=== PATIENT | male | born 1965 | race Caucasian/White ===

== ENCOUNTER 2018-10-06 19:12 | Emergency (ER) | payer OTHER, SELFPAY ==
--- NOTE | 2018-10-06 20:12 | ER ---
Nurse's Notes [facility] Name: Simon Munguia Age: 53 yrs Sex: Male : 1965 Arrival Date: 10/06/2018 Time: 19:16 Bed 12 Private MD: Diagnosis: Encounter for screening, unspecified Presentation: 10/06 19:32 Presenting complaint: Patient states: Low back pain radiating down left leg; Began 2 lp1 days ago, but aggravated by playing golf yesterday and sitting in 3 hour movie today; States similar symptoms previously but pain more severe today. Transition of care: patient was not received from another setting of care. Onset of symptoms was October 06, 2018. Risk Assessment: Do you want to hurt yourself or someone else? Patient reports no desire to harm self or others. Initial Sepsis Screen: Does the patient meet any 2 criteria? No. Patient's initial sepsis screen is negative. Does the patient have a suspected source of infection? No. Patient's initial sepsis screen is negative. Care prior to arrival: None. 19:32 Method Of Arrival: Ambulatory lp1 19:32 Acuity: JAYESH 4 lp1 Historical: - Allergies: 19:34 No Known Allergies; lp1 - Home Meds: 19:34 Unable to obtain [Active]; lp1 - PMHx: 19:34 Hypertension; Hyperlipidemia; lp1 - PSHx: 19:34 None; lp1 - Immunization history:: Adult Immunizations up to date. - Social history:: Smoking status: Patient uses tobacco products, smokes one-half pack cigarettes per day. - Ebola Screening: : No symptoms or risks identified at this time. Screenin:45 Abuse screen: Denies threats or abuse. Denies injuries from another. Nutritional aj1 screening: No deficits noted. Tuberculosis screening: No symptoms or risk factors identified. Fall Risk None identified. Assessment: 19:45 General: Appears in no apparent distress. uncomfortable, Behavior is calm, cooperative, aj1 appropriate for age. Pain: Complains of pain in low back area Pain radiates to left leg. Neuro: Level of Consciousness is awake, alert, obeys commands. Cardiovascular: Patient's skin is warm and dry. Respiratory: Airway is patent Respiratory effort is even, unlabored, Respiratory pattern is regular, symmetrical. GI: No signs and/or symptoms were reported involving the gastrointestinal system. : No signs and/or symptoms were reported regarding the genitourinary system. EENT: No signs and/or symptoms were reported regarding the EENT system. Derm: No signs and/or symptoms reported regarding the dermatologic system. Skin is pink, warm \T\ dry. normal. Musculoskeletal: No signs and/or symptoms reported regarding the musculoskeletal system. Circulation, motion, and sensation intact. Vital Signs: 19:33 BP 131 / 86; Pulse 106; Resp 18; Temp 97(TE); Pulse Ox 97% on R/A; Weight 104.33 kg; lp1 Height 6 ft. 0 in. (182.88 cm); Pain 6/10; 19:33 Body Mass Index 31.19 (104.33 kg, 182.88 cm) lp1 ED Course: 19:16 Patient arrived in ED. es 19:33 Triage completed. lp1 19:33 Arm band placed on left wrist. lp1 19:36 Jatinder Thakcer MD is Attending Physician. 19:38 Regina Vanegas RN is Primary Nurse. aj1 19:45 Patient has correct armband on for positive identification. aj1 19:45 No provider procedures requiring assistance completed. Patient did not have IV access aj1 during this emergency room visit. Administered Medications: No medications were administered Outcome: 20:12 Discharge ordered by . 20:15 Medical screen evaluation completed per provider. Patient declined treatment. aj1 20:15 Condition: good 20:15 Following a medical screening exam, the patient was provided information regarding alternative care sites and resources available per registration personnel. 20:15 Patient left the ED. aj1 Signatures: Regina Vanegas RN RN 1 Leah Dubon Laura, RN RN 1 Jatinder Thacker MD MD
--- NOTE | 2018-10-06 20:12 | EDPHYS ---
Physician Documentation [facility] Name: Simon Munguia Age: 53 yrs Sex: Male : 1965 Arrival Date: 10/06/2018 Time: 19:16 Bed 12 Private MD: ED Physician Jatinder Thacker HPI: 10/06 20:07 This 53 yrs old Male presents to ER via Ambulatory with complaints of Low gs Back Pain. 20:07 The patient presents with pain that is acute. The symptoms are located in the low back. gs The pain radiates to the lateral aspect of left thigh. The problem was sustained when bending over, from twisting. Onset: The symptoms/episode began/occurred 2 day(s) ago, and became persistent. Modifying factors: the patient symptoms are aggravated by bending. Associated signs and symptoms: Pertinent negatives: constipation, dysuria, fever, incontinence, numbness, urinary retention, weakness. Severity of symptoms: At their worst the symptoms were moderate, in the emergency department the symptoms are unchanged. The patient has experienced similar episodes in the past, multiple times. Historical: - Allergies: 19:34 No Known Allergies; lp1 - Home Meds: 19:34 Unable to obtain [Active]; lp1 - PMHx: 19:34 Hypertension; Hyperlipidemia; lp1 - PSHx: 19:34 None; lp1 - Immunization history:: Adult Immunizations up to date. - Social history:: Smoking status: Patient uses tobacco products, smokes one-half pack cigarettes per day. - Ebola Screening: : No symptoms or risks identified at this time. ROS: 20:07 All other systems are negative. gs Exam: 20:07 Head/Face: Normocephalic, atraumatic. Eyes: Pupils equal round and reactive to light, gs extra-ocular motions intact. Lids and lashes normal. Conjunctiva and sclera are non-icteric and not injected. Cornea within normal limits. Periorbital areas with no swelling, redness, or edema. ENT: Nares patent. No nasal discharge, no septal abnormalities noted. Tympanic membranes are normal and external auditory canals are clear. Oropharynx with no redness, swelling, or masses, exudates, or evidence of obstruction, uvula midline. Mucous membranes moist. Neck: Trachea midline, no thyromegaly or masses palpated, and no cervical lymphadenopathy. Supple, full range of motion without nuchal rigidity, or vertebral point tenderness. No Meningismus. Chest/axilla: Normal chest wall appearance and motion. Nontender with no deformity. No lesions are appreciated. Cardiovascular: Regular rate and rhythm with a normal S1 and S2. No gallops, murmurs, or rubs. Normal PMI, no JVD. No pulse deficits. Respiratory: Lungs have equal breath sounds bilaterally, clear to auscultation and percussion. No rales, rhonchi or wheezes noted. No increased work of breathing, no retractions or nasal flaring. Abdomen/GI: Soft, non-tender, with normal bowel sounds. No distension or tympany. No guarding or rebound. No evidence of tenderness throughout. Skin: Warm, dry with normal turgor. Normal color with no rashes, no lesions, and no evidence of cellulitis. MS/ Extremity: Pulses equal, no cyanosis. Neurovascular intact. Full, normal range of motion. Neuro: Awake and alert, GCS 15, oriented to person, place, time, and situation. Cranial nerves II-XII grossly intact. Motor strength 5/5 in all extremities. Sensory grossly intact. Cerebellar exam normal. Normal gait. 20:07 Constitutional: The patient appears alert, awake. 20:07 Back: pain, that is mild, of the left low back. Vital Signs: 19:33 BP 131 / 86; Pulse 106; Resp 18; Temp 97(TE); Pulse Ox 97% on R/A; Weight 104.33 kg; lp1 Height 6 ft. 0 in. (182.88 cm); Pain 6/10; 19:33 Body Mass Index 31.19 (104.33 kg, 182.88 cm) lp1 MDM: 19:46 Patient medically screened. gs 20:07 Differential diagnosis: strain, Herniated disc. Data reviewed: vital signs, nurses gs notes. Administered Medications: No medications were administered Disposition: 10/06/18 20:12 Discharged to Home. Impression: Encounter for screening, unspecified. - Condition is Stable. - Medication Reconciliation Form, Thank You Letter, Antibiotic Education, Prescription Opioid Use form. - Follow up: Private Physician; When: 2 - 3 days; Reason: Re-evaluation by your physician. Signatures: Regina Vanegas RN RN aj1 Isadora Colby RN RN lp1 Jatinder Thacker MD MD gs Corrections: (The following items were deleted from the chart) 20:15 20:12 10/06/2018 20:12 Discharged to Home. Impression: Encounter for screening, aj1 unspecified. Condition is Stable. Forms are Medication Reconciliation Form, Thank You Letter, Antibiotic Education, Prescription Opioid Use. Follow up: Private Physician; When: 2 - 3 days; Reason: Re-evaluation by your physician. gs
== END 2018-10-06 20:15 | disposition home or self-care (01) ==
LOC: ER 19:12
DX: Z13.9 Encounter for screening, unspecified (principal); I10 Essential (primary) hypertension; F17.210 Nicotine dependence, cigarettes, uncomplicated

== ENCOUNTER 2024-03-23 09:35 | Observation (INO) | payer MEDICARE, OTHER ==
--- OUTSIDE RECORDS SUMMARY | 2024-03-23 09:39 | XMS REPORT | Continuity of Care Document ---
Author Name Unknown Address [address] [facility] [address] [place], [place] [id number] [place] [address] thconnect Address [address] [facility] [address] [place] [address] Care Team Providers Care Surgical Product Sales Consultant Name Role Phone Rad Sen Attending Clinician [facility], No Primary or Family Admitting Clinic jose rafael Unavailable Payers Payer Name Policy Type Policy Number Effective Date Expirati on Date Source Encounters Start Date/Time End Date/Time Encounter Type Admission Type Attending Clinicians Care Facility Care Department Encounter ID Source 2019-07-29 09:49:00 2019-07-29 09:49:00 Outpatient Rad [facility] RADI [id number] [address] [facility] Results Test Description Test Time Test Comments Results Result Co mments Source - XR CHEST 2 V 2019-07-29 10:19:00 FAX: Rad [place] [phone] [place]: St: REG Name: YRIS DON [facility] : 1965 Age/S: 54/M [address] [place] [address] Blvd Unit #: [id number] Loc: [place] [address] Phys: Rad Sen MD Acct: [id number] Dis Date: Status: REG CLI PHONE #: [phone] Exam Date: 07/29/2019 1011 FAX #: [phone] Reason: Z00.00, ENCOUNTER FOR WELLNESS EXAMINATION. EXAMS: CPT CODE: [id number] XR CHEST 2 V 01979 CLINICAL HISTORY: Z00.00, ENCOUNTER FOR WELLNESS EXAMINATION. COMPARISON: NONE PA and lateral films of the chest demonstrate that heart size is normal. Lung white are clear. No evidence of pneumonia or congestive failure is seen. Regional skeletal structures demonstrate no acute abnormality. IMPRESSION: No evidence of pneumonia or congestive failure is seen. at 1019 Reported and signed by: Silvestre Alvarez M.D. CC: Rad Sen Technologist: SCARLET Bryant) Trnscrd Date/Time/By: 07/29/2019 (1083) : By: Bal Orig Print D/T: S: 07/29/2019 (6945) PAGE 1 Signed Report
[2024-03-23 10:12] LABS: Absolute Basophils 0.1 K/uL (0-0.5); Absolute Eosinophils 0.5 K/uL (0-0.5); Absolute Lymphocytes (CBC) 1.5 K/uL (0.7-4.9); Absolute Monocytes 0.9 K/uL (0.1-1.3); Absolute Neutrophil 7.1 K/uL (1.8-8.0); Basophils % 0.9 % (0-1.3); Eosinophils % 4.8 % (0-4.4); Hematocrit 41.6 % (39.6-49.0); Hemoglobin 13.9 g/dL (13.6-17.9); Lymphocytes % 14.7 % (15.3-44.8); MCH 29.9 pg (27.0-35.0); MCHC 33.4 g/dL (32.0-36.0); MCV 89.5 fL (80-100); MPV 8.1 fL (7.6-11.3); Monocytes % 9.1 % (3.3-12.3); Neutrophils % 70.5 % (41.7-73.7); Platelets 263 thou/uL (152-406); RBC Red Blood Cell Count 4.65 M/uL (4.33-5.43); Red Cell Distribution Width 14.5 % (12.1-15.2)
--- NOTE | 2024-03-23 10:18 | RAD REPORT ---
EXAMINATION: ONE VIEW CHEST XR CLINICAL INDICATION: DYSPNEA TECHNIQUE: Frontal chest projection is submitted. Examination is limited by patient positioning and t echnique. COMPARISON: No prior exam. FINDINGS: Mild interstitial pulmonary edema is possible. The heart is upper limit of normal in size. No displac ed fractures identified. IMPRESSION: Mild CHF is suspected.
[2024-03-23 10:29] LABS: Anion Gap 7.2 mEq/L (5.0-15.0); Magnesium 2.2 mg/dL (1.6-2.4); Potassium 4.2 mEq/L (3.5-5.1); Troponin High Sensitivity 5.9 pg/mL (<58.9)
--- NOTE | 2024-03-23 10:34 | RAD REPORT ---
EXAMINATION: US BILATERAL LOWER EXTREMITY VENOUS DOPPLER CLINICAL INDICATION: Pain;Swelling TECHNIQUE: Complete bilateral duplex sonography of the LEFT lower extremity veins was performed. The examination included compression for vein patency, color Doppler imaging and flow augmentation in response to distal compression of the distal external iliac, common femoral, femoral, popliteal, tibi al, and great and small saphenous veins. COMPARISON: No prior exam. FINDINGS: Duplex sonography testing of the veins of the LEFT lower extremity was performed. There is evidence o f thrombus involving the distal left femoral vein, popliteal vein and extending into the posterior tibial vein. IMPRESSION: Positive for left lower extremity DVT.
[2024-03-23] MEDS ORDERED: APIXABAN 5 MG TABLET ONE (10:45)
--- NOTE | 2024-03-23 11:06 | RAD REPORT ---
EXAMINATION: CTA CHEST PE CLINICAL INDICATION: DYSPNEA TECHNIQUE: This examination was performed according to an angiographic protocol with 3D post-processi ng. This involves 3D reconstructions, MIPs, volume rendered images and/or shaded surface rendering. One or more of the following dose reduction techniques were used: Automated exposure control, adjustm ent of the mA and/or kV according to patient size, and/or iterative reconstruction. Unless otherwise specified, incidental findings do not require dedicated imaging follow-up. COMPARISON: No prior exam. FINDINGS: PULMONARY ARTERIES: Pulmonary embolism is seen involving the segmental branches on the right. Pulmona ry embolism also present in the left lower lobe branches on the periphery involving the subsegmental branches. Mild RV strain pattern noted. THORACIC AORTA: Normal caliber and configuration. LUNGS: No evidence of airspace or interstitial process. No nodules. PLEURA: No pleural effusion. No pneumothorax. MEDIASTINUM AND LYMPH NODES: No mediastinal mass or fluid collection. Normal size mediastinal, hilar, and axillary lymph nodes. OSSEOUS STRUCTURES AND CHEST WALL: Intact. UPPER ABDOMEN: Vague areas of diminished density partially visualized liver. IMPRESSION: Positive for pulmonary thromboembolism bilaterally, slightly greater on the right as detailed. Mild RV strain pattern is seen. Vague areas of diminished density are seen in the liver parenchyma. Liver ultrasound commended for fu rther evaluation as these may represent liver masses.
--- NOTE | 2024-03-23 11:27 | EDPHYS ---
Physician Documentation [facility] Name: Simon Munguia Age: 59 yrs Sex: Male : 1965 Arrival Date: 03/23/2024 Time: 09:35 Bed 5 Private MD: ED Physician Abel Reyna HPI: 03/23 09:43 This 59 yrs old Male presents to ER via Unassigned with complaints of Leg Swelling - kb left. 09:43 Pt is a 59 year old male who presents for left lower leg pain and swelling that started kb one week ago. Denies chest pain. States he has had exertional dyspnea. . Historical: - Allergies: 10:04 No Known Allergies; hb - PMHx: 10:04 Hyperlipidemia; Hypertension; hb - PSHx: 10:04 None; hb - Immunization history:: Adult Immunizations up to date. - Infectious Disease History:: Denies. - Social history:: Smoking status: Patient/guardian denies using tobacco, the patient reports quitting approximately 5 years ago. ROS: 09:43 Constitutional: As per HPI kb Exam: 09:43 Constitutional: This is a well developed, well nourished patient who is awake, alert, kb and in no acute distress. Head/Face: Normocephalic, atraumatic. ENT: Moist Mucous membranes Cardiovascular: Regular rate Respiratory: Respirations even and unlabored. No increased work of breathing. Talking in full sentences Abdomen/GI: Soft, non-tender. No distention Skin: Warm, dry with normal turgor. Normal color. Neuro: Awake and alert, GCS 15, oriented to person, place, time, and situation. Moves all extremities. Normal gait. 09:43 Musculoskeletal/extremity: Extremities: grossly normal except: noted in the left lee: pain, swelling, tenderness, ROM: intact in all extremities, Circulation is intact in all extremities. Sensation intact. 10:07 ECG was reviewed by the Attending Physician. kb Vital Signs: 09:53 BP 146 / 98; Pulse 106; Resp 16; Temp 99.5(O); Pulse Ox 98% on R/A; Weight 106.59 kg; hb Height 6 ft. 0 in. ; Pain 5/10; 11:12 BP 140 / 97; Pulse 92; Resp 18 S; Pulse Ox 98% on R/A; aa5 11:45 BP 118 / 70; Pulse 92; Resp 16 S; Temp 97.8(TE); Pulse Ox 98% on R/A; aa5 09:53 Body Mass Index 31.87 (106.59 kg, 182.88 cm) hb 09:53 Pain Scale: Adult hb MDM: 09:45 Data reviewed: vital signs, nurses notes. kb 10:15 Patient medically screened. kb 11:24 Differential diagnosis: dvt, pe. SC =, CHF. Consideration of Admission/Observation kb Patient was admitted/placed on observation. Escalation of care including admission/observation considered. Management of patient was discussed with the following: Hospitalist: Hospitalist team, accepted for admission under Dr Reyna. Counseling: I had a detailed discussion with the patient and/or guardian regarding the historical points, exam findings, and any diagnostic results supporting the discharge/admit diagnosis, lab results, radiology results, the need for further work-up and treatment in the hospital. 03/23 09:45 Order name: Basic Metabolic Panel; Complete Time: 10:30 kb 03/23 09:45 Order name: CBC with Diff; Complete Time: 10:16 kb 03/23 09:45 Order name: Magnesium; Complete Time: 10:30 kb 03/23 09:45 Order name: NT PRO-BNP; Complete Time: 10:30 kb 03/23 09:45 Order name: Troponin HS; Complete Time: 10:30 kb 03/23 09:42 Order name: US Extremity Venous Unilateral Ltd; Complete Time: 10:41 kb 03/23 09:45 Order name: XRAY Chest (1 view); Complete Time: 10:21 kb 03/23 09:45 Order name: CT Chest For PE Angio; Complete Time: 11:06 kb 03/23 11:50 Order name: Liver Only; Complete Time: 12:51 EDMS 03/23 11:53 Order name: Echo with Doppler EDMS 03/23 09:45 Order name: Cardiac monitoring; Complete Time: 10:07 kb 03/23 09:45 Order name: EKG - Nurse/Tech; Complete Time: 10:07 kb 03/23 09:45 Order name: IV Saline Lock; Complete Time: 10:07 kb 03/23 09:45 Order name: Labs collected and sent; Complete Time: 10:07 kb 03/23 09:45 Order name: O2 Per Protocol; Complete Time: 10:07 kb 03/23 09:45 Order name: O2 Sat Monitoring; Complete Time: 10: kb EC: Rate is 103 beats/min. Rhythm is regular. QRS [place] is Normal. LA interval is normal at kb 160 msec. QRS interval is normal at 84 msec. QT interval is normal at 421 msec. Administered Medications: 10:46 Drug: Eliquis PO 10 mg PO once Route: PO; bp 12:50 Follow up: Response: No adverse reaction aa5 Disposition Summary: 03/23/24 11:26 Hospitalization Ordered Notes: Hospitalization Status: Observation kb Provider: Edvin Reyna Location: Telemetry/MedSurg (observation) kb Condition: Stable kb Problem: new kb Symptoms: are unchanged kb Bed/Room Type: Standard Room Assignment: 213(03/23/24 11:58) bd Diagnosis - Acute embolism and thrombosis of deep veins of lower extremity kb - Pulmonary embolism without acute cor pulmonale kb Forms: - Medication Reconciliation Form kb - SBAR form kb - Leadership Thank You Letter kb Signatures: Dispatcher [employer] EDMS Kathy Self, PHOTOGRAPHY INTERN-C PHOTOGRAPHY INTERN-[place] Cheung Heather, RN RN hb Nghia Allan, RN RN bp Katy Valdovinos RN aa5 Corrections: (The following items were deleted from the chart) 09:43 09:43 Extremity Venous Uni Ltd+US.RAD.BRZ ordered. EDMS EDMS 09:46 09:46 Chest Single View+RAD.RAD.BRZ ordered. EDMS EDMS 09:46 09:46 Chest For PE Angio+CT.RAD.BRZ ordered. EDMS EDMS 10:05 10:04 PSHx: High Cholesterol; hb hb 10:05 10:04 PSHx: Hypertension; hb hb 11:58 11:26 kb bd
--- NOTE | 2024-03-23 11:27 | ER ---
Nurse's Notes [facility] Name: Simon Munguia Age: 59 yrs Sex: Male : 1965 Arrival Date: 03/23/2024 Time: 09:35 Bed 5 Private MD: Diagnosis: Acute embolism and thrombosis of deep veins of lower extremity;Pulmonary embolism without acute cor pulmonale Presentation: 03/23 09:53 Chief complaint: Left leg pain, swelling, and redness x 1 week. Coronavirus screen: At this time, the client does not indicate any symptoms associated with coronavirus-19. Ebola Screen: No symptoms or risks identified at this time. Initial Sepsis Screen: Does the patient meet any 2 criteria? No. Patient's initial sepsis screen is negative. Does the patient have a suspected source of infection? No. Patient's initial sepsis screen is negative. Risk Assessment: Do you want to hurt yourself or someone else? Patient reports no desire to harm self or others. Onset of symptoms was March 16, 2024. 09:53 Method Of Arrival: Ambulatory 09:53 Acuity: JAYESH 3 hb Historical: - Allergies: 10:04 No Known Allergies; hb - PMHx: 10:04 Hyperlipidemia; Hypertension; hb - PSHx: 10:04 None; hb - Immunization history:: Adult Immunizations up to date. - Infectious Disease History:: Denies. - Social history:: Smoking status: Patient/guardian denies using tobacco, the patient reports quitting approximately 5 years ago. Screenin:00 [facility] ED Fall Risk Assessment (Adult) History of falling in the last 3 months, aa5 including since admission No falls in past 3 months (0 pts) Confusion or Disorientation No (0 pts) Intoxicated or Sedated No (0 pts) Impaired Gait No (0 pts) Mobility Assist Device Used No (0 pt) Altered Elimination No (0 pt) Score/Fall Risk Level 0 - 2 = Low Risk Oriented to surroundings, Maintained a safe environment, Educated pt \T\ family on fall prevention, incl call for assistance when getting out of bed. Abuse screen: Denies threats or abuse. Nutritional screening: No deficits noted. Tuberculosis screening: No symptoms or risk factors identified. Assessment: 10:00 General: Appears comfortable, Behavior is calm, cooperative. Pain: Complains of pain in aa5 left leg Pain currently is 1 out of 10 on a pain scale. Quality of pain is described as aching, Pain began 2-3 days ago. Is continuous. Neuro: Level of Consciousness is awake, alert, obeys commands, Oriented to person, place, time, situation. Cardiovascular: Heart tones S1 S2 present Rhythm is sinus tachycardia. Respiratory: Airway is patent Respiratory effort is even, unlabored, Respiratory pattern is regular, symmetrical. GI: No signs and/or symptoms were reported involving the gastrointestinal system. : No signs and/or symptoms were reported regarding the genitourinary system. EENT: No signs and/or symptoms were reported regarding the EENT system. Derm: Skin is pink, warm \T\ dry. Musculoskeletal: Reports pain and swelling to left leg. 10:35 Reassessment: Patient is alert, oriented x 3, equal unlabored respirations, skin aa5 warm/dry/pink. Pt back from US. 10:38 Reassessment: Pt to CT via stretcher . aa5 11:45 Reassessment: Patient is alert, oriented x 3, equal unlabored respirations, skin aa5 warm/dry/pink. 12:22 Reassessment: Pt currently at radiology . aa5 12:23 Reassessment: Patient is alert, oriented x 3, equal unlabored respirations, skin aa5 warm/dry/pink. Pt back from radiology . Vital Signs: 09:53 BP 146 / 98; Pulse 106; Resp 16; Temp 99.5(O); Pulse Ox 98% on R/A; Weight 106.59 kg; hb Height 6 ft. 0 in. ; Pain 5/10; 11:12 BP 140 / 97; Pulse 92; Resp 18 S; Pulse Ox 98% on R/A; aa5 11:45 BP 118 / 70; Pulse 92; Resp 16 S; Temp 97.8(TE); Pulse Ox 98% on R/A; aa5 09:53 Body Mass Index 31.87 (106.59 kg, 182.88 cm) hb 09:53 Pain Scale: Adult hb ED Course: 09:37 Patient arrived in ED. im 09:38 Kathy Self FNP-C [facility]. kb 09:38 Abel Reyna MD is Attending Physician. kb 09:52 Katy Valdovinos, NICA is Primary Nurse. aa5 10:00 Arm band placed on. aa5 10:00 Patient has correct armband on for positive identification. Placed in gown. Bed in low aa5 position. Call light in reach. Side rails up X 1. Client placed on continuous cardiac and pulse oximetry monitoring. NIBP monitoring applied. licensed practical nurse clinic nurse on. Pulse ox on. NIBP on. 10:01 EKG done, by ED staff, reviewed by Kathy LEONARDO. aa5 10:04 Triage completed. hb 10:05 Initial lab(s) drawn, by vt, sent to lab. Inserted saline lock: 20 gauge in right aa5 antecubital area, using aseptic technique. Blood collected. Flushed with 10 mL NS. 10:11 No provider procedures requiring assistance completed. aa5 10:15 XRAY Chest (1 view) In Process Unspecified. EDMS 10:27 US Extremity Venous Unilateral Ltd In Process Unspecified. EDMS 10:42 CT Chest For PE Angio In Process Unspecified. EDMS 11:26 Edvin Reyna MD is Hospitalizing Provider. kb 12:50 Patient admitted, IV remains in place. aa5 Administered Medications: 10:46 Drug: Eliquis PO 10 mg PO once Route: PO; bp 12:50 Follow up: Response: No adverse reaction aa5 Medication: 10:09 VIS not applicable for this client. aa5 Outcome: 11:26 Decision to Hospitalize by Provider. kb 12:50 Admitted to Med/surg accompanied by tech, via stretcher, with chart, aa5 12:50 Condition: stable 12:50 Instructed on the need for admit, Demonstrated understanding of instructions, 13:10 Patient left the ED. aa5 Signatures: Dispatcher [employer] EDMS Kathy Self FNP-C FNP-Ckb Calderon, Audri RN RN aa5 Riya Herzog RN RN Nghia Devine, RN RN bp Argenis Valerio Corrections: (The following items were deleted from the chart) 10:05 10:04 PSHx: High Cholesterol; hb hb 10:05 10:04 PSHx: Hypertension; hb hb 10:09 10:05 Arm band placed on hb aa5 13:29 13:29 Patient left the ED. aa5 aa5
--- NOTE | 2024-03-23 12:40 | RAD REPORT ---
EXAMINATION: Ultrasound of the liver CLINICAL HISTORY: [facility] MA[facility] ABN CT [facility] ABN CT COMPARISON: Chest CT dated 03/23/2024 FINDINGS: Liver: Visualized portions of the liver demonstrate prominent fatty liver infiltration. There are num erous hypoechoic lesions seen throughout the parenchyma suspicious for multiple liver masses. Another possibility would be areas of fatty sparing.. MRI liver protocol with contrast would be recom mended for follow-up assessment. Gallbladder: Nonvisualized Bile ducts: No intrahepatic or extrahepatic biliary dilatation. Common bile duct measures 2 mm. Fluid: No ascites. Spleen: Mildly prominent measuring 13 mm IMPRESSION: Prominent diffuse fatty liver pattern is seen. Within the liver parenchyma there are multiple geograp hic areas of masslike hypoechoic tissue. Differential would include multiple liver masses versus areas of fatty sparing. Recommend MRI liver protocol contrast for further evaluation of these findin gs.
[2024-03-23] MEDS ORDERED: ONDANSETRON 4 MG/2 ML VIAL IV PRN (13:25)
--- NOTE | 2024-03-23 14:45 | P.HP ---
Certification for Inpatient Patient admitted to: Observation With expected LOS: <2 Midnights Patient will require the following post-hospital care: None Practitioner: I am a practitioner with admitting privileges, knowledge of patient current condition, hospital course, and medical plan of care. Services: Services provided to patient in accordance with Admission requirements found in Title 42 Section 412.3 of the Code of Federal Regulations Patient History Date of Service: 03/23/24 Reason for admission: DVT, bilateral PE History of Present Illness: 59-year-old male with history of hypertension, hyperlipidemia, gout presents to the emergency department chief complaint of left lower extremity edema, dyspnea on exertion. He reports that he had been having symptoms for about 1 week now. He was evaluated in the emergency department ultrasound of the left lower extremity showed left lower extremity DVT involving the distal left femoral vein, popliteal vein and extending into the posterior tibial vein. CTA of the chest was also performed which showed PE involving the segmental branches on the right, left lower lobe branches on the periphery involving the subsegmental branches with mild RV strain pattern noted. Troponin and BNP within normal ranges, heart rate around 105 although patient reports his baseline heart rate is around 100 his entire life. He is normotensive and oxygen saturation within normal limits. CT of the chest also mentions some abnormalities in the liver and recommended liver ultrasound which has been ordered. Allergies No Known Allergies Allergy (Unverified 03/23/24 13:25) Home Medications: Dextroamphetamine/Amphetamine [Adderall Xr 20 mg Capsule] 20 mg PO BID 03/23/24 Olmesartan Medoxomil 1 tab PO BID 03/23/24 Rosuvastatin [Crestor] 10 mg PO DAILY 03/23/24 Zolpidem Tartrate 10 mg PO BEDTIME 03/23/24 - Past Medical/Surgical History Diabetic: No -: HTN -: HLD -: Insomnia -: ADD -: Pancreatitis Psychosocial/ Personal History: Works at a car [employer] - Family History Mother -: Hypertension, Cancer Notes: breast CA - survivor Father -: Heart disease, Stroke, Cancer, Kidney disease Notes: kidney CA, throat CA. watchman procedure - Social History Smoking Status: Former smoker Alcohol use: Yes CD- Drugs: No Caffeine use: Yes Place of Residence: Home Review of Systems 10-point ROS is otherwise unremarkable Respiratory: SOB with Excertion Musculoskeletal: Leg Pain (And swelling left lower extremity) Physical Examination - Vital Signs Temperature: 97.8 F Blood Pressure: 118/70 Pulse: 92 Respirations: 16 Pulse Ox (%): 99 - Physical Exam General: Alert, In no apparent distress, Oriented x3 HEENT: Atraumatic, PERRLA, EOMI Neck: Supple, 2+ carotid pulse no bruit, No LAD Respiratory: Clear to auscultation bilaterally, Normal air movement Cardiovascular: Regular rate/rhythm, Normal S1 S2 Gastrointestinal: Normal bowel sounds, No tenderness Musculoskeletal: No tenderness Integumentary: No rashes Neurological: Normal gait, Normal speech, Normal strength at 5/5 x4 extr, Normal tone - Studies Laboratory Data (last 24 hrs) 03/23/24 03/23/24 10:05 10:05 WBC 10.10 Hgb 13.9 Hct 41.6 Plt Count 263 Sodium 131 L Potassium 4.2 BUN 13 Creatinine 1.02 Glucose 171 H Magnesium 2.2 Assessment and Plan - Plan Assessment: Left lower extremity DVT, bilateral PE Abnormal findings of liver on CT Hypertension Hyperlipidemia Plan: Left lower extremity DVT, bilateral PE Troponin, BNP within normal limits CT shows mild right heart strain Echocardiogram ordered, pending PESI class II- low risk Continue anticoagulation unclear etiology of DVT/PE Denies tobacco use, hormone therapies including testosterone, recent travel, family history of blood clots or personal history of blood clots Does report prolonged periods of 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
[2024-03-23 16:01] LABS: Albumin 2.9 g/dL (3.4-5.0); Albumin/Globulin Ratio 0.6 (1.1-1.8); Bilirubin Direct 0.3 mg/dL (0-0.2); Bilirubin Indirect, Calculated 0.4 mg/dL (0.2-0.8); Bilirubin Total 0.7 mg/dL (0.2-1.0); Globulin 4.6 g/dL (2.3-3.5); Protein, Total 7.5 g/dL (6.4-8.2)
--- NOTE | 2024-03-23 16:42 | P.CNS ---
Date of Consult: 03/23/24 Reason for Consult: DVT and PE Chief Complaint: DVT, bilateral PE History of Present Illness: Pt is 59 yrs of age admitted with DVT and PE symtomatic for 2 wks with swelling and pain of the left leg and dyspnea on exertion Allergies No Known Allergies Allergy (Unverified 03/23/24 13:25) Home Medications: Dextroamphetamine/Amphetamine [Adderall Xr 20 mg Capsule] 20 mg PO BID 03/23/24 Olmesartan Medoxomil 1 tab PO BID 03/23/24 Rosuvastatin [Crestor] 10 mg PO DAILY 03/23/24 Zolpidem Tartrate 10 mg PO BEDTIME 03/23/24 - Past Medical/Surgical History Diabetic: No -: HTN -: HLD -: Insomnia -: ADD -: Pancreatitis Psychosocial/ Personal History: Works at a [employer] - Family History Mother Medical History: Hypertension, Cancer Notes: breast CA - survivor Father Medical History: Heart disease, Stroke, Cancer, Kidney disease Notes: kidney CA, throat CA. watchman procedure - Social History Smoking Status: Current every day smoker Alcohol use: Yes CD- Drugs: No Caffeine use: Yes Place of Residence: Home Review of Systems 10-point ROS is otherwise unremarkable General: Weakness Respiratory: Shortness of Breath Physical Examination Temp Pulse Resp BP Pulse Ox 98.4 F 95 H 16 134/74 97 03/23/24 16:00 03/23/24 16:00 03/23/24 16:00 03/23/24 16:00 03/23/24 16:00 General: Alert, Oriented x3 Respiratory: Clear to auscultation bilaterally Cardiovascular: Normal S1 S2, Edema (Edema of the left leg) Gastrointestinal: Normal bowel sounds, Soft and benign Laboratory Data (last 24 hrs) 03/23/24 03/23/24 03/23/24 10:05 10:05 10:05 WBC 10.10 Hgb 13.9 Hct 41.6 Plt Count 263 Sodium 131 L Potassium 4.2 BUN 13 Creatinine 1.02 Glucose 171 H Magnesium 2.2 Total Bilirubin 0.7 AST 71 H ALT 96 H Alkaline Phosphatase 285 H - Problems (1) Pulmonary emboli Current Visit: Yes Status: Acute Plan: Age 59 admitted with Left leg DVT and PE.Agree with Eliquis labs reviewed will 3-6 months possible indef Eliquis. Will check D Dimer in 3 months (2) Cirrhosis of liver Current Visit: Yes Status: Acute Plan: t funes a fatty liver Most halimaley cirhosis of the liver from excess drinking Qualifiers: Hepatic cirrhosis type: alcoholic cirrhosis
[2024-03-23] MEDS: APIXABAN 5 MG TABLET PO SCH (20:30)
[2024-03-24 05:21] LABS: Absolute Basophils 0.1 K/uL (0-0.5); Absolute Eosinophils 0.5 K/uL (0-0.5); Absolute Lymphocytes (CBC) 1.4 K/uL (0.7-4.9); Absolute Monocytes 1.1 K/uL (0.1-1.3); Absolute Neutrophil 6.2 K/uL (1.8-8.0); Basophils % 1.1 % (0-1.3); Eosinophils % 5.4 % (0-4.4); Hematocrit 40.3 % (39.6-49.0); Hemoglobin 13.4 g/dL (13.6-17.9); Lymphocytes % 14.7 % (15.3-44.8); MCH 30.1 pg (27.0-35.0); MCHC 33.4 g/dL (32.0-36.0); MCV 90.3 fL (80-100); MPV 8.4 fL (7.6-11.3); Monocytes % 12.1 % (3.3-12.3); Neutrophils % 66.7 % (41.7-73.7); Platelets 233 thou/uL (152-406); RBC Red Blood Cell Count 4.46 M/uL (4.33-5.43); Red Cell Distribution Width 14.6 % (12.1-15.2)
[2024-03-24 05:22] LABS: PT Prothrombin Time 17.8 SECONDS (9.4-12.5); Protime INR 1.61
[2024-03-24 05:38] LABS: Albumin 2.7 g/dL (3.4-5.0); Albumin/Globulin Ratio 0.6 (1.1-1.8); Anion Gap 6.3 mEq/L (5.0-15.0); Bilirubin Total 0.5 mg/dL (0.2-1.0); Globulin 4.5 g/dL (2.3-3.5); Potassium 4.3 mEq/L (3.5-5.1); Protein, Total 7.2 g/dL (6.4-8.2)
[2024-03-24] MEDS: IBUPROFEN 400 MG TAB PO PRN (06:31)
--- NOTE | 2024-03-24 06:34 | ECHO ---
HEIGHT: 6 ft 0 in WEIGHT: 235 lb 0 oz DATE OF STUDY: 03/23/[address]: Pan Foy NP 2-DIMENSIONAL: YES M.MODE: YES DOPPLER: YES COLOR FLOW: YES TDS: PORTABLE: YES DEFINITY: BUBBLE STUDY: DIAGNOSIS: PULMONARY EMBOLISM, HEART STRAIN CARDIAC HISTORY: CATHERIZATION: NO SURGERY: NO PROSTHETIC VALVE: NO PACEMAKER: NO MEASUREMENTS (cm) DIASTOLIC (NORMALS) SYSTOLIC (NORMALS) IVSd 1.1 (0.6-1.2) LA Diam 2.6 (1.9-4.0) LVEF 55-60% LVIDd 3.1 (3.5-5.7) LVIDs 2.2 (2.0-3.5) %FS 30% LVPWd 1.2 (0.6-1.2) Ao Diam 2.5 (2.0-3.7) 2 DIMENSIONAL ASSESSMENT: RIGHT ATRIUM: NORMAL LEFT ATRIUM: NORMAL RIGHT VENTRICLE: NORMAL LEFT VENTRICLE: NORMAL TRICUSPID VALVE: NORMAL MITRAL VALVE: NORMAL PULMONIC VALVE: NORMAL AORTIC VALVE: NORMAL PERICARDIAL EFFUSION: NONE AORTIC ROOT: NORMAL LEFT VENTRICULAR WALL MOTION: NORMAL DOPPLER/COLOR FLOW: NORMAL COMMENTS: 1. NORMAL LEFT VENTRICULAR EJECTION FRACTION 55-60% WITH NORMAL WALL MOTION 2. NORMAL RIGHT VENTRICULAR SIZE AND FUNCTION (NO STRAIN BY ECHOCARDIOGRAM) 3. TRACE MITRAL REGURGITATION TECHNOLOGIST: HEVER OVIEDO
[2024-03-24 10:03] VITALS: O2SAT 98
[2024-03-24 13:23] VITALS: BMI 31.8
[2024-03-24 13:59] VITALS: BP 131/85; TEMP 97.5
--- NOTE | 2024-03-24 14:39 | P.DS ---
Admission Date: 03/23/24 Discharge Date: 03/24/24 Disposition: ROUTINE DISCHARGE Discharge Condition: FAIR Reason for Admission: DVT, bilateral PE Brief History of Present Illness: Diagnosis Left lower extremity DVT, bilateral PE Abnormal findings of liver on CT Hypertension Hyperlipidemia HPI 03/23/2024 Simon Munguia is a 59-year-old male with history of hypertension, hyperlipidemia, gout presents to the emergency department chief complaint of left lower extremity edema, dyspnea on exertion. He reports that he had been having symptoms for about 1 week now. He was evaluated in the emergency department ultrasound of the left lower extremity showed left lower extremity DVT involving the distal left femoral vein, popliteal vein and extending into the posterior tibial vein. CTA of the chest was also performed which showed PE involving the segmental branches on the right, left lower lobe branches on the periphery involving the subsegmental branches with mild RV strain pattern noted. Troponin and BNP within normal ranges, heart rate around 105 although patient reports his baseline heart rate is around 100 his entire life. He is normotensive and oxygen saturation within normal limits. CT of the chest also mentions some abnormalities in the liver and recommended liver ultrasound which has been ordered. Hospital Course: Simon Munguia is a pleasant 59 year old male with a past medical history significant for hypertension, hyperlipidemia, gout who was admitted to the [facility] on 03/23/24 for left lower extremity DVT and PE. Simon Munguia presented to the ED with chief complaint of left lower extremity edema and dyspnea on exertion for one week. During this admission, he has remained on RA, afebrile, with NSR. He is in no acute distress, he was started on Eliquis BID and will continue anticoagulant therapy outpatient with a follow- up visit with Dr. Kaba for continued monitoring. On 03/24/24, Simon was seen on morning rounds and deemed medically stable for discharge. Simon was discharged with instructions to schedule follow-up appointments with PCP and Dr. Kaba. Simon was provided prescriptions for E liquis. Physical Exam General: Alert, In no apparent distress, Oriented x3 HEENT: Atraumatic, PERRLA, EOMI Neck: Supple, 2+ carotid pulse no bruit, No LAD Respiratory: Clear to auscultation bilaterally, Normal air movement Cardiovascular: Regular rate/rhythm, Normal S1 S2 Gastrointestinal: Normal bowel sounds, No tenderness Musculoskeletal: No tenderness Integumentary: No rashes Neurological: Normal gait, Normal speech, Normal strength at 5/5 x4 extr, Normal tone Vital Signs/Physical Exam: Temp Pulse Resp BP Pulse Ox 97.5 F 86 16 131/85 96 03/24/24 12:00 03/24/24 12:00 03/24/24 12:00 03/24/24 12:00 03/24/24 12:00 Laboratory Data at Discharge: WBC 9.30 thou/uL (4.3-10.9) 03/24/24 04:41 Hgb 13.4 g/dL (13.6-17.9) L 03/24/24 04:41 Hct 40.3 % (39.6-49.0) 03/24/24 04:41 Plt Count 233 thou/uL (152-406) 03/24/24 04:41 PT 17.8 SECONDS (9.4-12.5) H 03/24/24 04:41 INR 1.61 03/24/24 04:41 Sodium 133 mEq/L (136-145) L 03/24/24 04:41 Potassium 4.3 mEq/L (3.5-5.1) 03/24/24 04:41 BUN 13 mg/dL (7-18) 03/24/24 04:41 Creatinine 1.04 mg/dL (0.70-1.30) 03/24/24 04:41 Glucose 100 mg/dL (74-106) 03/24/24 04:41 Magnesium 2.2 mg/dL (1.6-2.4) 03/23/24 10:05 Total Bilirubin 0.5 mg/dL (0.2-1.0) 03/24/24 04:41 AST 68 U/L (15-37) H 03/24/24 04:41 ALT 94 U/L (16-61) H 03/24/24 04:41 Alkaline Phosphatase 306 U/L (45-117) H 03/24/24 04:41 Home Medications: Dextroamphetamine/Amphetamine [Adderall Xr 20 mg Capsule] 20 mg PO BID 03/23/24 Olmesartan Medoxomil 1 tab PO BID 03/23/24 Rosuvastatin [Crestor*] 10 mg PO DAILY 03/23/24 Zolpidem Tartrate 10 mg PO BEDTIME 03/23/24 Apixaban [Eliquis] 5 mg PO BID #74 tab 03/24/24 New Medications: Apixaban [Eliquis] 5 mg PO BID #74 tab Diet: AHA Activity: Ad ragini Followup: David Kaba MD [ACTIVE - CAN ADMIT] - 1-2 Weeks OOT,OOT [Primary Care Provider] - 1-2 Weeks
== END 2024-03-24 13:43 | disposition home or self-care (01) ==
LOC: ER 09:35 → ERHOLD 11:47 → 2ND 12:36
PROVIDERS: ADMIT Hospitalist; ATTEND Internal Medicine
DX: I82.432 Acute embolism and thrombosis of left popliteal vein (principal); I82.412 Acute embolism and thrombosis of left femoral vein; I82.442 Acute embolism and thrombosis of left tibial vein; I26.99 Other pulmonary embolism without acute cor pulmonale; R93.2 Abnormal findings on diagnostic imaging of liver and biliary tract; K74.60 Unspecified cirrhosis of liver; I10 Essential (primary) hypertension; E78.5 Hyperlipidemia, unspecified
CPT/HCPCS: 36415; 71045; 71275; 76705; 80048; 80053; 80076; 83735; 83880; 84484; 85025; 85610; 93005; 93306; 93971; G0378; Q9967

== ENCOUNTER 2024-04-09 12:29 | Emergency (ER) | payer MEDICARE ==
--- OUTSIDE RECORDS SUMMARY | 2024-04-09 12:32 | XMS REPORT | Continuity of Care Document ---
Author Name Unknown Address [address] [facility] [address] [place], [place] [id number] [place] [address] thconnect Address [address] [facility] [address] [place] [address] Care Team Providers Care Invoice Coder Name Role Phone Rad Sen [facility]ending [facility], No Primary or Family Admitting Clinic jose rafael Unavailable Payers Payer Name Policy Type Policy Number Effective Date Expirati on Date Source Encounters Start Date/Time End Date/Time Encounter Type Admission Type Attending Clinicians Care Facility Care Department Encounter ID Source 2019-07-29 09:49:00 2019-07-29 09:49:00 Outpatient Rad Warner [facility] RADI [id number] [address] [facility] Results Test Description Test Time Test Comments Results Result Co mments Source - XR CHEST 2 V 2019-07-29 10:19:00 FAX: Rad Al[place] [phone] Dolph: St: REG Name: YRIS DON [facility] : 1965 Age/S: 54/M [address] [place] [address] Blvd Unit #: [id number] Loc: [place] [address] Phys: Rad Sen MD Acct: [id number] Dis Date: Status: REG CLI PHONE #: [phone] Exam Date: 07/29/2019 1011 FAX #: [phone] Reason: Z00.00, ENCOUNTER FOR WELLNESS EXAMINATION. EXAMS: CPT CODE: [id number] XR CHEST 2 V 89264 CLINICAL HISTORY: Z00.00, ENCOUNTER FOR WELLNESS EXAMINATION. [...] Sen Technologist: SCARLET Bryant) Trnscrd Date/Time/By: 07/29/2019 (2402) : By: Bal Orig Print D/T: S: 07/29/2019 ([id number]) PAGE 1 Signed Report
[2024-04-09] MEDS ORDERED: NA CHLORIDE 0.9% 1,000 ML ONE (13:21)
[2024-04-09 13:59] LABS: SARS-CoV-2 Antigen CONTROL BLUE LINE VIS/BG OK; SARS-CoV-2 Antigen Rapid Res Negative (Negative)
[2024-04-09 14:04] LABS: Albumin 2.5 g/dL (3.4-5.0); Albumin/Globulin Ratio 0.5 (1.1-1.8); Bilirubin Direct 3.8 mg/dL (0-0.2); Bilirubin Indirect, Calculated 1.2 mg/dL (0.2-0.8); Protein, Total 7.5 g/dL (6.4-8.2); Troponin High Sensitivity 5.7 pg/mL (<58.9)
--- NOTE | 2024-04-09 14:10 | RAD REPORT ---
Procedure: Chest Single View HISTORY: Shortness of breath COMPARISON: March 23, 2024 FINDINGS: The lungs appear clear of acute infiltrate. No significant pleural effusion noted. The heart is normal size. IMPRESSION: No acute abnormality is displayed.
--- NOTE | 2024-04-09 14:10 | RAD REPORT ---
EXAMINATION: CTA CHEST PE CLINICAL INDICATION: Shortness of breath TECHNIQUE: 100 cc 370 Isovue administered intravenously. This examination was performed according to an angiographic protocol with 3D post-processing. This involves 3D reconstructions, MIPs, volume rendered images and/or shaded surface rendering. One or more of the following dose reduction techniqu es were used: Automated exposure control, adjustment of the mA and/or kV according to patient size, and/or iterative reconstruction. Unless otherwise specified, incidental findings do not require dedic ated imaging follow-up. LI1111. COMPARISON: March 23, 2024. FINDINGS: Left pulmonary emboli have mostly resolved. The thrombus within the right lobar and segmental branches has diminished. No thrombus within main pulmonary/right or left and main pulmonary artery . An aortic aneurysm not noted. No pleural effusion. No pericardial effusion. Lungs are clear. Mild stranding adjacent to the pancreatic tail may indicate mild pancreatitis.. Multiple hepatic masses are present. IMPRESSION: Improvement in the bilateral pulmonary emboli. Mild right ventricular strain There may be mild pancreatitis Multiple hepatic masses
[2024-04-09 14:16] LABS: Absolute Basophils 0.1 K/uL (0-0.5); Absolute Eosinophils 0.4 K/uL (0-0.5); Absolute Lymphocytes (CBC) 1.4 K/uL (0.7-4.9); Absolute Monocytes 1.6 K/uL (0.1-1.3); Absolute Neutrophil 8.4 K/uL (1.8-8.0); Basophils % 1.1 % (0-1.3); Eosinophils % 3.5 % (0-4.4); Hematocrit 39.8 % (39.6-49.0); Hemoglobin 13.4 g/dL (13.6-17.9); Lymphocytes % 11.4 % (15.3-44.8); MCH 29.5 pg (27.0-35.0); MCHC 33.7 g/dL (32.0-36.0); MCV 87.8 fL (80-100); MPV 9.5 fL (7.6-11.3); Monocytes % 13.5 % (3.3-12.3); Neutrophils % 70.5 % (41.7-73.7); Nucleated Red Blood Cells % 0.1 % (0-0); RBC Red Blood Cell Count 4.53 M/uL (4.33-5.43); Red Cell Distribution Width 14.6 % (12.1-15.2)
[2024-04-09 14:26] LABS: Platelets 48 thou/uL (152-406)
--- NOTE | 2024-04-09 14:49 | RAD REPORT ---
EXAMINATION: CT ABDOMEN AND PELVIS WITHOUT CONTRAST CLINICAL INDICATION: Abdominal pain TECHNIQUE: CT abdomen and pelvis was performed, as per department protocol. IV contrast and oral was not administered.Axial, sagittal and coronal reconstructions were obtained. One or more of the following dose reduction techniques were used: Automated exposure control, adjustment of the mA and/o r kV according to the patient size, and/or iterative reconstruction. Unless otherwise specified, incidental findings do not require dedicated imaging follow-up. [id number]. COMPARISON: CT chest April 09, 2024 FINDINGS: The lack of intravenous and oral contrast limits evaluation of solid organs, vessels and bowel. Howev er, there is contrast within the genitourinary system secondary to the recent CT chest. The liver contains multiple hypodense lesions involving both lobes. The largest is present within the right lobe measuring 5 cm. Mild stranding adjacent to the pancreatic tail. The spleen is borderline enlarged. , adrenals and right kidney grossly normal. 1.3 cm mass extends off of the upper pole left kidney. Hounsfield unit to. Small left renal cyst note d Diverticula stem from colon without diverticulitis. Normal appendix Small umbilical hernia Trace amount of free fluid. Small left inguinal hernia IMPRESSION: Multiple low-density lesions are present within the liver. These may represent metastases. Other cons iderations include focal fatty sparing and inflammation. Further evaluation with MRI may be helpful. Mild pancreatitis
--- NOTE | 2024-04-09 15:38 | RAD REPORT ---
EXAM: Right upper quadrant ultrasound. CLINICAL HISTORY: Abdominal pain COMPARISON: April 09, 2024 CT FINDINGS: Multiple hypoechoic hepatic lesions. Both lobes involved. They vary in size from approximately 1 to 5 cm. Hepatopedal flow. Contracted gallbladder poorly seen. Biliary tree normal caliber IMPRESSION: Multiple hepatic lesions likely metastases
--- NOTE | 2024-04-09 15:56 | ER ---
Nurse's Notes [facility] Name: Simon Munguia Age: 59 yrs Sex: Male : 1965 Arrival Date: 04/09/2024 Time: 12:29 Bed 15 Private MD: Diagnosis: Thrombocytopenia, unspecified;Unspecified jaundice;Elevated bilirubin;Liver Masses Presentation: 04/09 12:43 Chief complaint: Patient states: here a few weeks ago for leg pain. For the past week, ko1 I feel like my stamina and strength has gone down. Leg is still discolored. Coronavirus screen: At this time, the client does not indicate any symptoms associated with coronavirus-19. Ebola Screen: No symptoms or risks identified at this time. Initial Sepsis Screen: Does the patient meet any 2 criteria? No. Patient's initial sepsis screen is negative. Does the patient have a suspected source of infection? No. Patient's initial sepsis screen is negative. Risk Assessment: Do you want to hurt yourself or someone else? Patient reports no desire to harm self or others. Onset of symptoms is unknown. 12:43 Method Of Arrival: Ambulatory ko1 12:43 Acuity: JAYESH 3 ko1 Triage Assessment: 12:47 General: Appears in no apparent distress. Behavior is calm, cooperative, appropriate ko1 for age. Pain: Complains of pain in epigastric area. Historical: - Allergies: 12:47 No Known Allergies; ko1 - PMHx: 12:47 Hyperlipidemia; Hypertension; Deep vein thrombosis; ko1 - Immunization history:: Adult Immunizations up to date. - Infectious Disease History:: Denies. - Social history:: Smoking status: Patient denies any tobacco usage or history of. Screenin:50 [facility] ED Fall Risk Assessment (Adult) History of falling in the last 3 months, rs5 including since admission No falls in past 3 months (0 pts) Confusion or Disorientation No (0 pts) Intoxicated or Sedated No (0 pts) Impaired Gait No (0 pts) Mobility Assist Device Used No (0 pt) Altered Elimination No (0 pt) Score/Fall Risk Level 0 - 2 = Low Risk Oriented to surroundings, Maintained a safe environment. Abuse screen: Denies threats or abuse. Nutritional screening: No deficits noted. Tuberculosis screening: No symptoms or risk factors identified. Assessment: 12:50 General: Appears in no apparent distress. uncomfortable, Behavior is calm, cooperative. rs5 Pain: Complains of pain in left leg Pain currently is 3 out of 10 on a pain scale. Quality of pain is described as aching, Is continuous. Neuro: Level of Consciousness is awake, alert, obeys commands, Oriented to person, place, time, situation. Cardiovascular: Patient's skin is warm and dry. Respiratory: Reports shortness of breath cough that is Airway is patent Respiratory effort is even, unlabored, Respiratory pattern is regular, symmetrical. GI: Abdomen is round non-distended, Abd is soft and non tender X 4 quads. : No signs and/or symptoms were reported regarding the genitourinary system. EENT: No signs and/or symptoms were reported regarding the EENT system. Derm: Skin is intact, Skin is pink, warm \T\ dry. Musculoskeletal: Range of motion: intact in all extremities, Reports discoloration of left leg. No discoloration noted to legs bila. 14:01 Reassessment: Patient and/or family updated on plan of care and expected duration. Pain rs5 level reassessed. Patient is alert, oriented x 3, equal unlabored respirations, skin warm/dry/pink. 15:10 Reassessment: Patient and/or family updated on plan of care and expected duration. Pain rs5 level reassessed. Patient is alert, oriented x 3, equal unlabored respirations, skin warm/dry/pink. 16:12 Reassessment: Patient and/or family updated on plan of care and expected duration. Pain rs5 level reassessed. Patient is alert, oriented x 3, equal unlabored respirations, skin warm/dry/pink. 17:22 Reassessment: Patient and/or family updated on plan of care and expected duration. Pain rs5 level reassessed. Patient is alert, oriented x 3, equal unlabored respirations, skin warm/dry/pink. 18:27 Reassessment: Patient and/or family updated on plan of care and expected duration. Pain rs5 level reassessed. Patient is alert, oriented x 3, equal unlabored respirations, skin warm/dry/pink. 18:31 Reassessment: report given to EMS at bedside . rs5 Vital Signs: 12:43 BP 95 / 76; Pulse 117; Resp 18; Temp 97; Pulse Ox 98% ; ko1 14:50 BP 101 / 74; Pulse 107; Resp 17; Pulse Ox 99% on R/A; rs5 15:35 BP 106 / 80; Pulse 106; ec2 16:06 Weight 102.06 kg; Height 6 ft. 0 in. ; cm10 16:19 BP 99 / 73; Pulse 109; Resp 17; Pulse Ox 99% on R/A; rs5 18:28 BP 104 / 77; Pulse 102; Resp 18; Pulse Ox 99% on R/A; rs5 16:06 Body Mass Index 30.52 (102.06 kg, 182.88 cm) cm10 ED Course: 12:37 Patient arrived in ED. mg5 12:47 Triage completed. ko1 12:47 Fabio Cox MD is Attending Physician. ec2 12:47 Arm band placed on right wrist. Patient placed in an exam room, on a stretcher, on ko1 pulse oximetry, Patient notified of wait time. 12:50 Patient has correct armband on for positive identification. Placed in gown. Bed in low rs5 position. Call light in reach. Side rails up X2. 12:50 No provider procedures requiring assistance completed. rs5 12:52 Inserted saline lock: 20 gauge in right antecubital area, using aseptic technique. rs5 Blood collected. Flushed with 10 mL NS. 13:07 Luis A Lambert, RN is Primary Nurse. rs5 13:38 XRAY Chest (1 view) In Process Unspecified. EDMS 13:42 CT Chest For PE Angio In Process Unspecified. EDMS 14:33 CT Abd/Pelvis - Without Contrast In Process Unspecified. EDMS 15:27 US Abdomen Limited In Process Unspecified. EDMS 16:00 Transfer initiated at this time with [facility]. Dayday states that he will call back after cm10 contacting the Supervisor [facility]. 16:54 Doc to doc completed at this time. [facility] 17:[address] Bob Pollack at 1700, Approval at 1718 by Dayday Gil. Pt accepted at cm10 [facility] room 730. 17:50 [facility] contacted for transfer ETA 30-40mins, [facility] contacted and ETA 20 cm10 min. 18:35 Patient transferred, IV remains in place. rs5 Administered Medications: 13:15 Drug: NS 0.9% IV 1000 ml IV at 1000 ml once; to be given as a bolus over 60 minutes rs5 Route: IV; Rate: 1000 ml; Site: right antecubital; 14:20 Follow up: IV Status: Completed infusion; IV Intake: 1000ml rs5 Medication: 18:28 VIS not applicable for this client. rs5 Intake: 14:20 IV: 1000ml; Total: 1000ml. rs5 Outcome: 15:56 ER care complete, transfer ordered by . ec2 18:35 Patient left the ED. rs5 18:35 Transferred by ground EMS Transfer form completed. rs5 18:35 Condition: stable 18:35 Instructed on the need for transfer, Demonstrated understanding of instructions, Signatures: Dispatcher [employer] EDMS Valerie Love RN RN ko1 Luis A Lambert RN RN rs5 Marybeth Ruth RN RN cm10 Margo Fuentes mg5 Fabio Cox MD MD ec2 Corrections: (The following items were deleted from the chart) 17:34 17:[address] Bob Pollack at 1700, Approval at 1718 by Dayday healy 10 19:09 19:05 Patient left the ED. rs5 rs5
--- NOTE | 2024-04-09 15:56 | EDPHYS ---
Physician Documentation [facility] Name: Simon Munguia Age: 59 yrs Sex: Male : 1965 Arrival Date: 04/09/2024 Time: 12:29 Bed 15 Private MD: ED Physician Fabio Cox HPI: 04/09 13:34 This 59 yrs old Male presents to ER via Ambulatory with complaints of Doesn't ec2 Feel Right, LEG DISCOLORATION. 13:34 Patient arrives today for acute feeling unwell. Patient reports that he was previously ec2 diagnosed with a DVT as well as PE, started on anticoagulation and generally feels unwell. States that he feels increased malaise, occasional cough. No vomiting, no diarrhea. Patient reports that the weakness is progressively gotten worse. Patient reports medication compliance. Reports that he also noticed swelling to the left leg which is persistent from the time he was diagnosed with DVT.. Historical: - Allergies: 12:47 No Known Allergies; ko1 - PMHx: 12:47 Hyperlipidemia; Hypertension; Deep vein thrombosis; ko1 - Immunization history:: Adult Immunizations up to date. - Infectious Disease History:: Denies. - Social history:: Smoking status: Patient denies any tobacco usage or history of. ROS: 13:34 Constitutional: as per hpi ec2 Exam: 13:34 Constitutional: GEN: NAD Head: atraumatic Eyes: EOMI Ears: External ears are ec2 normal. CV: tachycardia LUNGS: no respiratory distress ABD: non-distended SKIN: Left lower extremity without significant edema or swelling or vein prominence MSK: no evidence of trauma Vital Signs: 12:43 BP 95 / 76; Pulse 117; Resp 18; Temp 97; Pulse Ox 98% ; ko1 14:50 BP 101 / 74; Pulse 107; Resp 17; Pulse Ox 99% on R/A; rs5 15:35 BP 106 / 80; Pulse 106; ec2 16:06 Weight 102.06 kg; Height 6 ft. 0 in. ; cm10 16:19 BP 99 / 73; Pulse 109; Resp 17; Pulse Ox 99% on R/A; rs5 18:28 BP 104 / 77; Pulse 102; Resp 18; Pulse Ox 99% on R/A; rs5 16:06 Body Mass Index 30.52 (102.06 kg, 182.88 cm) cm10 MDM: 12:49 Medical Screening Exam initiated ec2 13:35 Data reviewed: vital signs. ED course: Patient arrives today for increased fatigue. ec2 Examination remarkable for well-appearing nontoxic dividual slightly tachycardic. Will obtain lab work, EKG, CT imaging. Differential diagnosis includes PE, electrolyte disturbances, anemia.. 13:36 ED course: Of note patient reports he has baseline tachycardia and typical heart rates ec2 for him 100-120 . 14:11 ED course: EKG independently reviewed and interpreted by me, shows sinus tachycardia, ec2 rate 108, no acute ST segment elevations, intervals are nonactionable.. 14:14 ED course: Metabolic profile shows renal dysfunction with a creatinine 1.51 and GFR 53. ec2 LFTs are remarkable for total bili elevation of 5.0, elevated AST and ALT. CT scan of the chest shows improving bilateral pulmonary emboli, possibly mild pancreatitis, possible right heart strain. Multiple liver masses noted. . 15:55 ED course: CT abdomen pelvis shows concern for liver masses, possible metastases, mild ec2 pancreatitis noted as well. Ultrasound shows same masses., Patient with LFT abnormalities, new thrombocytopenia when compared to previous visit. Will transfer for higher level of care, hematology, oncology. . 17:01 ED course: I discussed case with hepatology as well as general medicine who agreed ec2 except the patient for transfer. Family updated regarding plan of care.. 04/09 13:11 Order name: Basic Metabolic Panel; Complete Time: 14:13 ec2 04/09 13:11 Order name: CBC with Diff; Complete Time: 16:10 ec2 04/09 13:11 Order name: Troponin HS; Complete Time: 14:13 ec2 04/09 13:11 Order name: Influenza Screen (a \T\ B); Complete Time: 14:13 ec2 04/09 13:11 Order name: SARS RAPID; Complete Time: 14:04 ec2 04/09 13:11 Order name: UAM; Complete Time: 17:49 ec2 04/09 13:11 Order name: LFT's; Complete Time: 14:13 ec2 04/09 14:17 Order name: Lipase; Complete Time: 14:36 ec2 04/09 16:01 Order name: CBC Smear Scan; Complete Time: 16:10 EDMS 04/09 16:10 Order name: PT-INR; Complete Time: 17:49 ec2 04/09 16:10 Order name: Ptt, Activated; Complete Time: 17:49 ec2 04/09 13:11 Order name: XRAY Chest (1 view); Complete Time: 14:13 ec2 04/09 13:11 Order name: CT Chest For PE Angio; Complete Time: 14:13 ec2 04/09 14:15 Order name: CT Abd/Pelvis - Without Contrast; Complete Time: 14:59 ec2 04/09 14:15 Order name: US Abdomen Limited; Complete Time: 15:39 ec2 04/09 13:11 Order name: Cardiac monitoring; Complete Time: 13:43 ec2 04/09 13:11 Order name: EKG - Nurse/Tech; Complete Time: 14:09 ec2 04/09 13:11 Order name: IV Saline Lock; Complete Time: 13:43 ec2 04/09 13:11 Order name: Labs collected and sent; Complete Time: 13:43 ec2 04/09 13:11 Order name: O2 Per Protocol; Complete Time: 13:43 ec2 04/09 13:11 Order name: O2 Sat Monitoring; Complete Time: 13:43 ec2 04/09 13:53 Order name: Labs - recollect needed: lavender .; Complete Time: 14:03 bc6 Administered Medications: 13:15 Drug: NS 0.9% IV 1000 ml IV at 1000 ml once; to be given as a bolus over 60 minutes rs5 Route: IV; Rate: 1000 ml; Site: right antecubital; 14:20 Follow up: IV Status: Completed infusion; IV Intake: 1000ml rs5 Disposition Summary: 04/09/24 15:56 Transfer Ordered Notes: Transfer Location: Other Acute Care Facility ec2 Reason: Higher level of care ec2 Condition: Stable ec2 Problem: new ec2 Symptoms: are unchanged ec2 Accepting Physician: transferring doc(04/09/24 19:05) rs5 Diagnosis - Thrombocytopenia, unspecified ec2 - Unspecified jaundice ec2 - Elevated bilirubin ec2 - Liver Masses ec2 Forms: - Medication Reconciliation Form ec2 - SBAR form ec2 Signatures: Dispatcher [employer] Valerie Vasquez RN RN ko1 Luis A Lambert RN RN rs5 Twila Soto bc6 Fabio Cox MD MD ec2 Corrections: (The following items were deleted from the chart) 13:11 13:11 BASIC METABOLIC PANEL+C.LAB.BRZ ordered. EDMS EDMS 13:11 13:11 CBC+H.LAB.BRZ ordered. EDMS EDMS 13:11 13:11 Troponin High Sensitivity+C.LAB.BRZ ordered. EDMS EDMS 13:11 13:11 Influenza Screen (A \T\ B)+BA.LAB.BRZ ordered. EDMS EDMS 13:11 13:11 SARS-COV-2 Antigen Rapid+I.LAB.BRZ ordered. EDMS EDMS 13:11 13:11 Urinalysis W/Microscopic+U.LAB.BRZ ordered. EDMS EDMS 13:11 13:11 HEPATIC FUNCTION+C.LAB.BRZ ordered. EDMS EDMS 13:12 13:12 Chest Single View+RAD.RAD.BRZ ordered. EDMS EDMS 13:12 13:12 Chest For PE Angio+CT.RAD.BRZ ordered. EDMS EDMS 13:35 13:34 Constitutional: GEN: NAD Head: atraumatic Eyes: EOMI Ears: External ears are ec2 normal. CV: regular rate LUNGS: no respiratory distress ABD: non-distended SKIN: Left lower extremity without significant edema or swelling or vein prominence MSK: no evidence of trauma ec2 16:11 16:10 PROTIME (+INR)+COAG.LAB.BRZ ordered. EDMS EDMS 16:11 16:10 PTT, ACTIVATED+COAG.LAB.BRZ ordered. EDMS EDMS 19:05 15:56 transferring doc ec2 rs5
[2024-04-09 15:59] LABS: White Blood Cell Scan OK (OK)
[2024-04-09 16:04] LABS: Blood Morphology Comment NOT SEEN (NOT SEEN); Platelet Estimate DECR
[2024-04-09 17:28] LABS: PT Prothrombin Time 20.9 SECONDS (9.4-12.5); PTT, Activated Partial Thromb 30.4 SECONDS (24.3-36.9); Protime INR 1.9
[2024-04-09 17:31] LABS: Specific Gravity > 1.030 (1.005-1.030); Sqamous Epithelial <5 /HPF (None Seen); Urine Bacteria <20 /HPF (<20); Urine Bilirubin NEGATIVE (Negative); Urine Blood Negative (Negative); Urine Clarity Clear (Clear); Urine Color Yellow (Yellow); Urine Culture Reflex Order NOT NEEDED; Urine Glucose NEGATIVE (Negative); Urine Ketones NEGATIVE (Negative); Urine Micro Reflex YN NO BILL MICROSCOPIC; Urine Nitrite NEGATIVE (Negative); Urine Protein NEGATIVE (Negative); Urine RBC <5 /HPF (None Seen); Urine Urobilinogen Normal (Normal); Urine WBC <5 /HPF (<5)
[2024-04-09 19:14] VITALS: TEMP 97
[2024-04-09 19:20] VITALS: O2SAT 99
[2024-04-09 19:32] VITALS: BP 104/77
--- NOTE | 2024-04-13 12:24 | EKG ---
Test Date: 2024-04-09 Test Time: 13:55:11 Property Coordinator: CARLI MEASUREMENT RESULTS: Intervals: Rate: 108 RI: 158 QRSD: 86 QT: 330 QTc: 442 [place]: P: 62 RI: 158 QRS: 62 T: 34 INTERPRETIVE STATEMENTS: Sinus tachycardia Otherwise normal ECG Compared to ECG 03/23/2024 09:58:31 No significant changes Electronically Signed On 04-13-24 12:17:42 PROJECT SPECIALIST by Carlos Manuel Schaefer
== END 2024-04-09 19:05 ==
LOC: ER 12:29
DX: D69.6 Thrombocytopenia, unspecified (principal); R17 Unspecified jaundice; E80.7 Disorder of bilirubin metabolism, unspecified; R16.0 Hepatomegaly, not elsewhere classified; R53.1 Weakness; Z86.718 Personal history of other venous thrombosis and embolism; Z79.01 Long term (current) use of anticoagulants; I10 Essential (primary) hypertension
CPT/HCPCS: 36415; 71045; 71275; 74176; 76705; 80048; 80076; 81001; 83690; 84484; 85025; 85610; 85730; 87804; 87811; 93005; 96360; 99285; J7030; Q9967